=== PATIENT | male | born 2000 | race Caucasian/White ===

== ENCOUNTER 2019-12-26 14:51 | Emergency (ER) | payer SELFPAY ==
[~2019-12-26] VITALS: Ht 175.3 cm; Wt 72.6 kg
[2019-12-26] MEDS ORDERED: ONDANSETRON ODT8 MG PO (17:17)
[2019-12-26] MEDS ORDERED: NORCO 5-325 TA1 EACH PO (17:17)
== END 2019-12-26 17:30 | disposition home or self-care (01) ==
LOC: ED 14:51
DX: S32.019A Unspecified fracture of first lumbar vertebra, initial encounter for closed fracture (principal); S22.089A Unspecified fracture of T11-T12 vertebra, initial encounter for closed fracture; V28.4XXA Motorcycle driver injured in noncollision transport accident in traffic accident, initial encounter
CPT/HCPCS: 72128; 72131; 80053; 81001; 85025; 96374; 96375; 99284-25; J1170; J1885; J7030